=== PATIENT | female | born 1990 | race Two or more races ===

== ENCOUNTER 2017-02-14 20:08 | Emergency (ER) | payer SELFPAY ==
[2017-02-14 20:12] VITALS: BP 118/66
[2017-02-14 20:52] LABS: BILIRUBIN,URINE NEGATIVE (NEG); GLUCOSE,URINE NEGATIVE (NEG); NITRITE,URINE NEGATIVE (NEG); PROTEIN,URINE NEGATIVE (NEG-TRACE)
[2017-02-14] MEDS ORDERED: PREN1TAB58 PO (20:52)
--- NOTE | 2017-02-14 20:53 | PHYS DOC ---
Past Medical History Past Medical History: No Pertinent History Past Surgical History: No Surgical History Additional Past Surgical Histo: OVARIAN TORSION Alcohol Use: None Drug Use: None Adult General Chief Complaint Chief Complaint: ABDOMINAL PAIN IN HPI HPI 26-year-old female presenting to the emergency department today for concern for the fetus. She is a proximally 17 weeks by last menstrual period. She has had lower abdominal pain that is sharp moderate intermittent nonradiating. She was seen in clinic today with her unable to find the heartbeat. She denies trauma. She denies vaginal bleeding. Review of systems is negative for chest pain shortness of breath headache neck stiffness fevers or chills. All other review of systems is negative unless otherwise noted in history of present illness. Review of Systems Review of Systems SEE ABOVE. Allergies Allergies Allergies Coded Allergies Type Severity Reaction Last Updated Verified No Known Drug Allergies 11/06/15 No Physical Exam Physical Exam Constitutional: Well developed, well nourished, no acute distress, non-toxic appearance. HENT: Normocephalic, atraumatic, bilateral external ears normal, oropharynx moist, no oral exudates, nose normal. [] Eyes: PERRLA, EOMI, conjunctiva normal, no discharge. Neck: Normal range of motion, no tenderness, supple, no stridor. [] Cardiovascular:Heart rate regular rhythm, no murmur Lungs & Thorax: Bilateral breath sounds clear to auscultation [] Abdomen: Gravid abdomen that is nontender. No rebound tenderness or guarding is present. Negative McBurney's point when adjusted for gestation. Skin: Warm, dry, no erythema, no rash. [] Back: No tenderness, no CVA tenderness. Extremities: No tenderness, no cyanosis, no clubbing, ROM intact, no edema. [] Neurologic: Alert and oriented X 3, normal motor function, normal sensory function, no focal deficits noted. Psychologic: Affect normal, judgement normal, mood normal. Current Patient Data Vital Signs Vital Signs Date Time Temp Pulse Resp B/P Pulse Ox O2 Delivery O2 Flow Rate FiO2 02/14/17 20:12 97.9 71 16 118/66 100 Room Air 97.9 Lab Values Laboratory Tests Test 02/14/17 20:28 02/14/17 21:08 Urine Collection Type Unknown Urine Color Yellow Urine Clarity Clear Urine pH 7.0 Urine Specific Leonard 1.015 Urine Protein Negativemg/dL (NEG-TRACE) Urine Glucose (UA) Negativemg/dL (NEG) Urine Ketones (Stick) Negativemg/dL (NEG) Urine Blood Negative (NEG) Urine Nitrite Negative (NEG) Urine Bilirubin Negative (NEG) Urine Urobilinogen Dipstick 1.0mg/dL (0.2 mg/dL) Urine Leukocyte Esterase Negative (NEG) Urine RBC 0/HPF (0-2) Urine WBC Occ/HPF (0-4) Urine Squamous Epithelial Cells Mod/LPF Urine Bacteria Few/HPF (0-FEW) Urine Mucus Slight/LPF White Blood Count 9.3x10^3/uL (4.0-11.0) Red Blood Count 3.80x10^6/uL (3.50-5.40) Hemoglobin 8.8g/dL (12.0-15.5) L Hematocrit 27.2% (36.0-47.0) L Mean Corpuscular Volume 72fL (79-100) L Mean Corpuscular Hemoglobin 23pg (25-35) L Mean Corpuscular Hemoglobin Concent 32g/dL (31-37) Red Cell Distribution Width 18.0% (11.5-14.5) H Platelet Count 191x10^3/uL (140-400) Neutrophils (%) (Auto) 73% (31-73) Lymphocytes (%) (Auto) 20% (24-48) L Monocytes (%) (Auto) 6% (0-9) Eosinophils (%) (Auto) 1% (0-3) Basophils (%) (Auto) 0% (0-3) Neutrophils # (Auto) 6.8x10^3uL (1.8-7.7) Lymphocytes # (Auto) 1.9x10^3/uL (1.0-4.8) Monocytes # (Auto) 0.6x10^3/uL (0.0-1.1) Eosinophils # (Auto) 0.0x10^3/uL (0.0-0.7) Basophils # (Auto) 0.0x10^3/uL (0.0-0.2) Platelet Estimate Pending Sodium Level 138mmol/L (136-145) Potassium Level 3.3mmol/L (3.5-5.1) L Chloride Level 102mmol/L (98-107) Carbon Dioxide Level 26mmol/L (21-32) Anion Gap 10 (6-14) Blood Urea Nitrogen 10mg/dL (7-20) Creatinine 0.6mg/dL (0.6-1.0) Estimated GFR (Cockcroft-Gault) 121.8 Glucose Level 100mg/dL (70-99) H Calcium Level 8.8mg/dL (8.5-10.1) Total Bilirubin 0.2mg/dL (0.2-1.0) Direct Bilirubin 0.1mg/dL (0.0-0.2) Aspartate Amino Transferase (AST) 15U/L (15-37) Alanine Aminotransferase (ALT) 16U/L (14-59) Alkaline Phosphatase 42U/L (46-116) L Total Protein 7.4g/dL (6.4-8.2) Albumin 3.2g/dL (3.4-5.0) L Lipase 112U/L (73-393) Laboratory Tests 02/14/17 21:08 Laboratory Tests 02/14/17 21:08 EKG EKG [] Radiology/Procedures Radiology/Procedures [] Course & Med Decision Making Course & Med Decision Making Pertinent Labs and Imaging studies reviewed. (See chart for details) [] 26-year-old female presenting to the emergency department with abdominal pain and reported difficulty finding heartbeat in clinic. Vital signs unremarkable. Pertinent physical exam findings showed a nontender abdomen. Ultrasound showed fetus with heart beat. No vaginal bleeding present. Patient was in discharged home to follow up with head soft sugar operator over the next 2-3 days. Repeat ultrasound recommended within 2 weeks. pt is Rh neg. No need for rhogam to be given at this point because the patient does not have vaginal bleeding or recent trauma. She was given Keflex for asymptomatic bacteriuria in . Dragon Disclaimer Dragon Disclaimer This electronic medical record was generated, in whole or in part, using a voice recognition dictation system. Departure Departure Impression: Primary Impression: Abdominal pain affecting Additional Impressions: Asymptomatic bacteriuria Rh negative status during Disposition: HOME, SELF-CARE Condition: STABLE Referrals: NO PCP (PCP) CRISTOBAL CONCEPCION Jr, MD Patient Instructions: Abdominal Pain During Additional Instructions: Thank you for allowing us to participate in your care today. Followup with your OB in 3 days if your symptoms do not improve. If you do not have a primary care provider you can ask for a list of our primary care providers. Return to the emergency department you have any new or concerning findings. This should be evaluated by the primary care physician and any necessary consulting services for continued management within a few days after discharge. Return to emergency room if you have any new or concerning symptoms including but not limited to fever, chills, nausea, vomiting, intractable pain, any new rashes, chest pain, shortness of air, uncontrolled bleeding, difficulty breathing, and/or vision loss. You may have been prescribed medication that can change in your level of thinking and ability to operate machinery. These medications include hydrocodone and Ativan. Also, Benadryl has been known to do this as well. Be sure to check with your pharmacist and ask if the medications you've prescribed can affect your level of consciousness. I recommend not operating heavy machinery or driving while on medication such as these. Scripts Cephalexin (Keflex)500 Mg Capsule1 Cap PO BID #14 CAP Prov:ARIN LLAMAS MD 02/14/17 Vits W-Ca,Fe,Fa(<1MG) ( Vitamins)1 Each Tablet1 Tab PO DAILY # 15 TAB Prov:ARIN LLAMAS MD 02/14/17 Problem Qualifiers ARIN LLAMAS MD Feb 14, 2017 20:53
[2017-02-14 20:57] LABS: BACTERIA,URINE FEW /HPF (0-FEW); RBC,URINE 0 /HPF (0-2); SQUAMOUS EPITHELIAL CELL,UR MOD /LPF; WBC,URINE OCC /HPF (0-4)
[2017-02-14 21:32] LABS: BASO % 0 % (0-3); EOS % 1 % (0-3); HEMATOCRIT 27.2 % (36.0-47.0); HEMOGLOBIN 8.8 g/dL (12.0-15.5); LYMPH # 1.9 x10^3/uL (1.0-4.8); LYMPH % 20 % (24-48); MEAN CORPUSCULAR HEMOGLOBIN 23 pg (25-35); MEAN CORPUSCULAR HGB CONC 32 g/dL (31-37); MEAN CORPUSCULAR VOLUME 72 fL (79-100); MONO % 6 % (0-9); NEUT % 73 % (31-73); PLATELET COUNT 191 x10^3/uL (140-400); WHITE BLOOD COUNT 9.3 x10^3/uL (4.0-11.0)
[2017-02-14 21:45] LABS: CALCIUM 8.8 mg/dL (8.5-10.1); CREATININE 0.6 mg/dL (0.6-1.0); GFR 121.8; POTASSIUM 3.3 mmol/L (3.5-5.1)
[2017-02-14 21:51] LABS: ALBUMIN 3.2 g/dL (3.4-5.0); DIRECT BILIRUBIN 0.1 mg/dL (0.0-0.2); TOTAL BILIRUBIN 0.2 mg/dL (0.2-1.0); TOTAL PROTEIN 7.4 g/dL (6.4-8.2)
--- NOTE | 2017-02-14 21:51 | RAD ---
PROCEDURE Obstetrics sonogram. HISTORY Pain. TECHNIQUE Sonographic imaging of a gravid uterus was performed. COMPARISON None. FINDINGS There is a single intrauterine fetus with a heart rate of 141 beats per minute. The fetus is in cephalic presentation. The cervix measures 5.4 cm in length. There is a low lying posterior placenta extending to 1.9 cm from the internal cervical os. The amniotic fluid index is normal. There is a three-vessel umbilical cord. body motion is seen. The bladder, stomach, kidneys, spine and brain are unremarkable. There is a four-chamber heart. The biparietal diameter is 3.67 cm, corresponding with 17 weeks and 2 days. The head circumference is 13.45 cm, corresponding with 17 weeks and 0 days. The abdominal circumference is 11.39 cm, corresponding with 17 weeks and 1 day. The femoral length is 2.48 cm, corresponding with 17 weeks and 3 days. The head circumference to abdominal circumference ratio is 1.18. The estimated weight is 189 grams in the estimated gestational age based on combined ultrasound measurements is 17 weeks and 2 days. There prominent right maternal adnexal vessels, not clearly within limits to suggest congestion. The placental insertion of the umbilical cord is less than 1 centimeter from the placental margin. The cephalic index is slightly elevated 85.1. There is a small hypoechoic region within the fundus of the uterus possibly due to a small fibroid. IMPRESSION 1. Single intrauterine fetus with an estimated gestational age based on ultrasound measurements of 17 weeks and 2 days and heart rate of 141 beats per minute. anatomy was assessed on this exam. However, a formal anatomy survey can be performed at approximately 20 weeks gestation. 2. Suspected marginal umbilical cord insertion extending to less than 1 centimeter from the placental margin. Short-term follow-up is recommended. 3. Prominent right maternal adnexal vessels, not clearly within limits to suggest congestion. Electronically signed by: Leatha Pereira (Feb 14, 2017 21:50:50)
[2017-02-14] MEDS ORDERED: CEPH-264 PO (22:01)
[2017-02-14 22:37] LABS: ANISOCYTOSIS SLIGHT; HYPOCHROMIA SLIGHT; MICROCYTOSIS SLIGHT; PLT ESTIMATE ADEQUATE (ADEQUATE); POIKILOCYTOSIS SLIGHT
== END 2017-02-14 22:11 | disposition home or self-care (01) ==
LOC: ER 20:08
DX: O26.892 Other specified pregnancy related conditions, second trimester (principal); R10.30 Lower abdominal pain, unspecified; R82.71 Bacteriuria; O36.0920 Maternal care for other rhesus isoimmunization, second trimester, not applicable or unspecified; Z3A.17 17 weeks gestation of pregnancy
CPT/HCPCS: 36415; 76805; 80048; 80076; 81001; 83690; 85007; 85027; 86850; 86900; 86901; 99285-25

== ENCOUNTER 2021-06-25 16:54 | Emergency (ER) | payer SELFPAY ==
[~2021-06-25] VITALS: Ht 165.1 cm; Wt 64.0 kg
[~2021-06-25 16:54] MED LIST: CEPH-264 PO; PREN1TAB58 PO
--- NOTE | 2021-06-25 20:51 | ED.ADGEN ---
Past Medical History Past Medical History: No Pertinent History Past Surgical History: No Surgical History Additional Past Surgical Histo: OVARIAN TORSION Smoking Status: Never Smoker Alcohol Use: None Drug Use: None General Adult EDM: Chief Complaint: FLU SYMPTOM HPI: HPI: Patient is a 30 year old female coming in with multiple complaints. Patient states she has bilateral posterior neck pain but no C-spine tenderness. No neck rigidity or sore throat. Also complaining of bilateral low back pain that she describes as cramping. Denies any dysuria or hematuria. Denies any fevers but has had chills. Has had a headache and nonproductive cough. Patient states she got her second Covid vaccine 1 month ago. No known sick contacts. 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 Patient states she was told that she needs to see an oncologist about her thyroid but has not followed up, it was several years ago. States she thinks her thyroid is overactive but is unsure of what the exact problem list. Review of Systems: Review of Systems: All other systems within normal limits except for as noted in the HPI Allergies: Allergies: Allergies Coded Allergies Type Severity Reaction Last Updated Verified No Known Drug Allergies 11/06/15 No Physical Exam: PE: Constitutional: Well developed, well nourished, no acute distress, non-toxic appearance. [] HENT: Normocephalic, atraumatic, bilateral external ears normal, nose normal. Normal oropharynx [] Eyes: PERRLA, conjunctiva normal, no discharge. [] Neck: No rigidity, supple, no stridor. No C-spine tenderness, tenderness on bilateral paraspinous muscles. No lymphadenopathy felt but tender over posterior cervical chain [] Cardiovascular: Regular rate and rhythm, brisk cap refill [] Lungs & Thorax: Non labored symmetric respirations, no tachypnea or respiratory distress [] Abdomen: Soft, nondistended. Skin: Warm, dry, no erythema, no rash. [] Back: Unremarkable, bilateral lumbar tenderness, no tenderness on the spine, no step-off or deformity Extremities: No deformities, range of motion grossly intact, no lower extremity edema [] Neurologic: Alert and oriented X 3, no focal deficits noted. [] Psychologic: Affect normal, judgement normal, mood normal. [] Current Patient Data: Labs: Laboratory Tests Test 06/25/21 20:30 06/25/21 20:44 06/25/21 21:15 Urine Collection Type Unknown Urine Color Yellow Urine Clarity Clear Urine pH 6.5 (<5.0-8.0) Urine Specific [place]one 1.020 (1.000-1.030) Urine Protein Negative mg/dL (NEG-TRACE) Urine Glucose (UA) Negative mg/dL (NEG) Urine Ketones (Stick) Negative mg/dL (NEG) Urine Blood Negative (NEG) Urine Nitrite Negative (NEG) Urine Bilirubin Negative (NEG) Urine Urobilinogen Dipstick 0.2 mg/dL (0.2 mg/dL) Urine Leukocyte Esterase Negative (NEG) Urine RBC 0 /HPF (0-2) Urine WBC Rare /HPF (0-4) Urine Squamous Epithelial Cells Many /LPF Urine Bacteria Few /HPF (0-FEW) Urine Mucus Marked /LPF POC Urine HCG, Qualitative Hcg negative (Negative) White Blood Count 4.0 x10^3/uL (4.0-11.0) Red Blood Count 4.28 x10^6/uL (3.50-5.40) Hemoglobin 9.4 g/dL (12.0-15.5) L Hematocrit 30.0 % (36.0-47.0) L Mean Corpuscular Volume 70 fL (79-100) L Mean Corpuscular Hemoglobin 22 pg (25-35) L Mean Corpuscular Hemoglobin Concent 31 g/dL (31-37) Red Cell Distribution Width 18.2 % (11.5-14.5) H Platelet Count 281 x10^3/uL (140-400) Neutrophils (%) (Auto) 47 % (31-73) Lymphocytes (%) (Auto) 43 % (24-48) Monocytes (%) (Auto) 7 % (0-9) Eosinophils (%) (Auto) 2 % (0-3) Basophils (%) (Auto) 1 % (0-3) Neutrophils # (Auto) 1.9 x10^3/uL (1.8-7.7) Lymphocytes # (Auto) 1.7 x10^3/uL (1.0-4.8) Monocytes # (Auto) 0.3 x10^3/uL (0.0-1.1) Eosinophils # (Auto) 0.1 x10^3/uL (0.0-0.7) Basophils # (Auto) 0.0 x10^3/uL (0.0-0.2) Platelet Estimate Adequate (ADEQUATE) Polychromasia Slight Anisocytosis Slight Microcytosis Mod Sodium Level 141 mmol/L (136-145) Potassium Level 3.7 mmol/L (3.5-5.1) Chloride Level 103 mmol/L (98-107) Carbon Dioxide Level 29 mmol/L (21-32) Anion Gap 9 (6-14) Blood Urea Nitrogen 13 mg/dL (7-20) Creatinine 0.8 mg/dL (0.6-1.0) Estimated GFR (Cockcroft-Gault) 84.8 BUN/Creatinine Ratio 16 (6-20) Glucose Level 81 mg/dL (70-99) Calcium Level 9.1 mg/dL (8.5-10.1) Total Bilirubin 0.2 mg/dL (0.2-1.0) Aspartate Amino Transferase (AST) 18 U/L (15-37) Alanine Aminotransferase (ALT) 16 U/L (14-59) Alkaline Phosphatase 57 U/L (46-116) Total Protein 7.9 g/dL (6.4-8.2) Albumin 4.3 g/dL (3.4-5.0) Albumin/Globulin Ratio 1.2 (1.0-1.7) Heterophil Agglutinins Negative (NEGATIVE) Influenza Type A Antigen Negative (NEGATIVE) Influenza Type B Antigen Negative (NEGATIVE) SARS-CoV-2 Antigen (Rapid) Positive (NEGATIVE) *A Laboratory Tests 06/25/21 21:15 Laboratory Tests 06/25/21 21:15 Vital Signs: Vital Signs Date Time Temp Pulse Resp B/P (MAP) Pulse Ox O2 Delivery O2 Flow Rate FiO2 06/25/21 20:34 97.8 68 24 125/79 (83) 100 Room Air 97.8 EKG: EKG: [] Heart Score: C/O Chest Pain: No Risk Factors: Risk Factors: DM, Current or recent (<one month) smoker, HTN, HLP, family history of CAD, obesity. Risk Scores: Score 0 - 3: 2.5% MACE over next 6 weeks - Discharge Home Score 4 - 6: 20.3% MACE over next 6 weeks - Admit for Clinical Observation Score 7 - 10: 72.7% MACE over next 6 weeks - Early Invasive Strategies Radiology/Procedures: Radiology/Procedures: [facility] [address] [place] [address] IMAGING REPORT Signed PATIENT: REED PETERSON ACCOUNT: [id number] : 1990 LOCATION: ER AGE: 30 SEX: F EXAM STATUS: REG ER ORD. PHYSICIAN: MARILEE GARCIA MD REASON: cough PROCEDURE: PORTABLE CHEST 1V Single view chest dated 06/25/2021 9:10 PM: COMPARISON: None Clinical Indication: Cough. Findings: Single upright portable exam of the chest was performed. Heart size and mediastinal contours are within normal limits. Lungs are clear. No consolidation or pleural effusion. No pneumothorax. IMPRESSION: No acute radiographic abnormality. Electronically signed by: Nico Flores MD (06/25/2021 9:10 PM) [facility] [place] and SIGNED BY: NICO FLORES MD DATE: 06/25/[id number] 0 [] Course & Med Decision Making: Course & Med Decision Making Pertinent Labs and Imaging studies reviewed. (See chart for details) [] Dragon Disclaimer: Dragon Disclaimer: This electronic medical record was generated, in whole or in part, using a voice recognition dictation system. Departure Departure Impression: Primary Impression: COVID-19 Disposition: HOME / SELF CARE / HOMELESS Condition: STABLE Referrals: NO PCP (PCP) Additional Instructions: You have been tested for or diagnosed with COVID-19. It is an infection caused by a new type of coronavirus. COVID-19 will cause cold-like or mild flu symptoms in most. It can cause more severe symptoms like problems breathing in some. There is no treatment for COVID-19. The body will clear the infection over time. Self-care will help to ease discomfort. Steps to Take: Self-Care Rest as needed. Healthy habits may help you feel better. Steps include: Choose healthy foods including fruits and vegetables. Drink water throughout the day. Get plenty of sleep each night. If you smoke, try to quit. It may ease breathing. Avoid alcohol. Keep Others Healthy The virus can spread to others. Droplets are released every time you sneeze or cough. The droplets can get into the mouth, nose, or eyes of people near you and lead to infection. To lower the chances of spreading COVID-19 to others: Stay at home until your doctor has said it is safe to leave. If you tested positive this will mean staying isolated until both of the following are true: At least 7 days have passed since the start of illness. You are free of fever for at least 72 hours without the use of medicine. During this time: - Avoid public areas, events, or transportation. Do not return to work or school until your doctor has said it is safe to do so. - Call ahead if you need to go to a medical center. Let them know you may have COVID-19. It will help them guide you where to go. They may also ask you to wear a facemask when you come to the office. - If you call for emergency medical services, let them know you may have COVID- 19. While at home: - Try to avoid close contact with others. Stay about 6 feet away. - If possible, spend most of your time in a separate room from others. - Use a face mask if you will be in close contact with others such as sharing a room or vehicle. - Have someone wipe down common surfaces in the home. Use household straight tooth gear generator operator every day on areas like doorknobs, counters, or sinks. - Cough or sneeze into a tissue. Throw the tissue away right after use. If a t issue is not available, cough or sneeze into your elbow. - Wash your hands often. Wash them after sneezing or coughing. Use soap and water and wash for at least 20 seconds. Alcohol based hand filter cleaner can be used if soap and water is not available. - Do not prepare food for others. Avoid sharing personal items like forks, spoons, or toothbrushes. - Avoid close contact with pets while you are sick. There is no evidence of the virus passing to pets. This is a safety step until more is known about this virus. Isolation can be frustrating. Social interaction can help. Keep in touch with friends and family through phone and tech options. You can still interact with others in your home, just keep a safe distance of about 6 feet. Follow-up: Your doctors office will check in with you to see if there are any changes in your health. You may be asked to keep track of symptoms to share with them. They will also let you know when you are clear to be in public again. Problems to Look Out For: Contact your doctor if your recovery is not going as you expect. Get emergency care if you have problems such as: - Trouble breathing - Nonstop chest pain or pressure - Changes in awareness, confusion, or problems waking - Lips or face have bluish color - Worsening of symptoms If you think you have an emergency, call for emergency medical services right away. [facility] DONAHUE MD Jun 25, 2021 20:51
[2021-06-25 20:54] LABS: BILIRUBIN,URINE NEGATIVE (NEG); CLARITY,URINE CLEAR; COLOR,URINE YELLOW; NITRITE,URINE NEGATIVE (NEG); PH,URINE 6.5 (<5.0-8.0); PROTEIN,URINE NEGATIVE (NEG-TRACE); UROBILINOGEN,URINE 0.2 mg/dL (0.2 mg/dL)
[2021-06-25 21:10] LABS: BACTERIA,URINE FEW /HPF (0-FEW); RBC,URINE 0 /HPF (0-2); WBC,URINE RARE /HPF (0-4)
--- NOTE | 2021-06-25 21:13 | RAD ---
Single view chest dated 06/25/2021 9:10 PM: COMPARISON: None Clinical Indication: Cough. Findings: Single upright portable exam of the chest was performed. Heart size and mediastinal contours are with in normal limits. Lungs are clear. No consolidation or pleural effusion. No pneumothorax. IMPRESSION: No acute radiographic abnormality. Electronically signed by: Nico Flores MD (06/25/2021 9:10 PM) BRETT
[2021-06-25 21:29] LABS: BASO % 1 % (0-3); EOS # 0.1 x10^3/uL (0.0-0.7); EOS % 2 % (0-3); HEMOGLOBIN 9.4 g/dL (12.0-15.5); LYMPH # 1.7 x10^3/uL (1.0-4.8); LYMPH % 43 % (24-48); MEAN CORPUSCULAR HEMOGLOBIN 22 pg (25-35); MEAN CORPUSCULAR HGB CONC 31 g/dL (31-37); MEAN CORPUSCULAR VOLUME 70 fL (79-100); MONO # 0.3 x10^3/uL (0.0-1.1); MONO % 7 % (0-9); NEUT # 1.9 x10^3/uL (1.8-7.7); NEUT % 47 % (31-73); PLATELET COUNT 281 x10^3/uL (140-400); RED BLOOD COUNT 4.28 x10^6/uL (3.50-5.40); RED CELL DISTRIBUTION WIDTH 18.2 % (11.5-14.5)
[2021-06-25 21:42] LABS: CALCIUM 9.1 mg/dL (8.5-10.1); CREATININE 0.8 mg/dL (0.6-1.0); GFR 84.8; POTASSIUM 3.7 mmol/L (3.5-5.1)
[2021-06-25 21:43] LABS: MONONUCLEOSIS PATIENT NEGATIVE (NEGATIVE)
[2021-06-25 21:48] LABS: ALBUMIN 4.3 g/dL (3.4-5.0); ALBUMIN/GLOBULIN RATIO 1.2 (1.0-1.7); TOTAL BILIRUBIN 0.2 mg/dL (0.2-1.0); TOTAL PROTEIN 7.9 g/dL (6.4-8.2)
[2021-06-25 21:49] LABS: INFLUENZA A PATIENT NEGATIVE (NEGATIVE); INFLUENZA B PATIENT NEGATIVE (NEGATIVE)
[2021-06-25 21:53] LABS: PLT ESTIMATE ADEQUATE (ADEQUATE)
[2021-06-25 21:54] LABS: POLYCHROMASIA SLIGHT
[2021-06-25 21:56] LABS: ANISOCYTOSIS SLIGHT; MICROCYTOSIS MOD
[2021-06-25 22:03] VITALS: BP 116/70
== END 2021-06-25 22:16 | disposition home or self-care (01) ==
LOC: ER 16:54
DX: U07.1 COVID-19 (principal)
CPT/HCPCS: 36415; 71045; 80053; 81001; 81025; 84443; 85025; 86308; 87426; 87804; 99284

== ENCOUNTER 2022-03-11 21:07 | Emergency (ER) | payer SELFPAY ==
[~2022-03-11] VITALS: Ht 165.1 cm; Wt 66.8 kg
[2022-03-11 22:04] LABS: INFLUENZA A PATIENT NEGATIVE (NEGATIVE); INFLUENZA B PATIENT NEGATIVE (NEGATIVE)
[2022-03-11] MEDS ORDERED: ONDA4TAB12 PO (22:06)
--- NOTE | 2022-03-11 22:06 | PHYS DOC ---
Past Medical History Past Medical History: No Pertinent History Past Surgical History: Tubal ligation Additional Past Surgical Histo: OVARIAN TORSION Smoking Status: Never Smoker Alcohol Use: None Drug Use: None General Adult EDM: Chief Complaint: FEVER HPI: HPI: Patient is a 31 year old F who presents with 2 days of fevers, chills, body aches and nausea with vomiting x1. Patient has been taking Tylenol and Motrin as needed for fevers and pains. Patient had her full COVID vaccination and was also COVID-positive 1 time last year. Patient denies any known sick contacts in the past weeks. Patient denies any significant shortness of breath. Review of Systems: Review of Systems: Constitutional: fever and chills. [] Eyes: Denies change in visual acuity. [] HENT: Nasal congestion and sore throat. [] Respiratory: Mild cough and shortness of breath. [] Cardiovascular: Denies chest pain or edema. [] GI: Denies abdominal pain or bloody stools [] : Denies dysuria. [] Musculoskeletal: Has moderate back pain and joint pain. [] Integument: Denies rash. [] Neurologic: Mild headache but nofocal weakness or sensory changes. [] Endocrine: Denies polyuria or polydipsia. [] Lymphatic: Denies swollen glands. [] Psychiatric: Denies depression or anxiety. [] Heart Score: C/O Chest Pain: No Risk Factors: Risk Factors: DM, Current or recent (<one month) smoker, HTN, HLP, family history of CAD, obesity. Risk Scores: Score 0 - 3: 2.5% MACE over next 6 weeks - Discharge Home Score 4 - 6: 20.3% MACE over next 6 weeks - Admit for Clinical Observation Score 7 - 10: 72.7% MACE over next 6 weeks - Early Invasive Strategies Allergies: Allergies: Allergies Coded Allergies Type Severity Reaction Last Updated Verified No Known Drug Allergies 11/06/15 No Physical Exam: PE: Constitutional: Well developed, well nourished, no acute distress, non-toxic appearance. [] HENT: Normocephalic, atraumatic, bilateral external ears normal, oropharynx moist, no oral exudates, nose normal. [] Eyes: PERRLA, EOMI, conjunctiva normal, no discharge. [] Neck: Normal range of motion, no tenderness, supple, no stridor. [] Cardiovascular:Heart rate regular rhythm, no murmur [] Lungs & Thorax: Bilateral breath sounds clear to auscultation [] Abdomen: Bowel sounds normal, soft, no tenderness, no masses, no pulsatile masses. [] Skin: Warm, dry, no erythema, no rash. [] Back: No tenderness, no CVA tenderness. [] Extremities: No tenderness, no cyanosis, no clubbing, ROM intact, no edema. [] Neurologic: Alert and oriented X 3, normal motor function, normal sensory function, no focal deficits noted. [] Psychologic: Affect normal, judgement normal, mood normal. [] Current Patient Data: Vital Signs: Vital Signs Date Time Temp Pulse Resp B/P (MAP) Pulse Ox O2 Delivery O2 Flow Rate FiO2 03/11/22 21:10 98.6 85 16 108/65 (79) 97 Room Air 98.6 EKG: EKG: [] Radiology/Procedures: Radiology/Procedures: [] Course & Med Decision Making: Course & Med Decision Making Patient with a likely viral syndrome, possible flu versus COVID versus nonspecific virus. Patient's oxygen saturation 100% on room air and clear lungs bilaterally, low suspicion for bacterial pneumonia. Will swab for flu and COVID. Patient refusing any IV fluids or medications, says that she currently does not feel particularly bad and would prefer to take p.o. medications when she gets home. Pending flu and COVID swabs will likely discharge with prescription for Zofran to ensure she is able to hydrate well p.o. and will continue to take [id number] pain and fever medications. May Disclaimer: May Disclaimer: This electronic medical record was generated, in whole or in part, using a voice recognition dictation system. Departure Departure Impression: Primary Impression: Viral syndrome Disposition: HOME / SELF CARE / HOMELESS Condition: GOOD Referrals: NO PCP (PCP) Patient Instructions: Viral Syndrome Scripts Ondansetron (ONDANSETRON ODT) 4 Mg Tab.rapdis 1 TAB PO PRN Q6-8HRS, #16 TAB Prov: JEREMY ALTMAN MD 03/11/22 JEREMY ALTMAN MD March 11, 2022 22:06
[2022-03-11 22:30] VITALS: BP 100/61
== END 2022-03-11 22:31 | disposition home or self-care (01) ==
LOC: ER 21:07
DX: B34.9 Viral infection, unspecified (principal); Z20.822 Contact with and (suspected) exposure to COVID-19
CPT/HCPCS: 87428; 99283